=== PATIENT | female | born 1995 | race Caucasian/White ===

== ENCOUNTER 2022-07-15 18:33 | Emergency (ER) | payer OTHER, MEDICAID, SELFPAY ==
--- NOTE | 2022-07-15 18:34 | ED.EAR ---
HPI - Ear Problem General Chief complaint: Ear Stated complaint: Foreign Body in Left Ear Time Seen by Provider: 07/15/22 18:34 Source: patient and RN notes reviewed History of Present Illness HPI Narrative: Patient is a 27-year-old female who presents to urgent care with complaints of possible foreign body to the left ear. Patient states she was cleaning out her ears today 1 cm and believe she may have gotten Q-tips stuck in the ear. Denies any pain. No other acute complaints. No acute distress noted. Patient aware of the plan of care. Some parts of this dictation were generated by voice recognition software and may contain typographical and/or grammatical inaccuracies. Related Data Allergies Allergy/AdvReac Type Severity Reaction Status Date / Time No Known Allergies Allergy Verified 07/15/22 18:42 Review of Systems Review of Systems: CONSTITUTIONAL: Denies fever, chills, or sweats. EYES: Denies visual changes, redness, or discharge. ENT: Denies rhinorrhea, congestion, sore throat. Reports of a possible foreign body to the left ear CARDIOVASCULAR: Denies chest pain, palpitations, or edema. RESPIRATORY: Denies cough or dyspnea. GASTROINTESTINAL: Denies abdominal pain, nausea, vomiting, or diarrhea. GENITOURINARY: Denies dysuria or hematuria. SKIN: Denies rash or itching. MUSCULOSKELETAL: Denies back pain, joint pain, or myalgia. NEUROLOGIC: Denies headache, numbness, or weakness. PSYCHIATRIC: Denies anxiety or depression. All other systems reviewed are negative, except as documented in HPI. PMFSH Comments At the time of my signature, I reviewed and agree with the nursing past medical, surgical, social, and family history. There is no relevant family history pertinent to the patient complaint. Exam Narrative: GENERAL: This is a well-nourished, well-developed patient, in no apparent distress. HEAD: normocephalic, atraumatic. EYES: PERRL. Sclera clear/white. Vision is grossly intact. EARS: External ears normal, auditory canals clear and without drainage, unable to visualize left TM due to foreign body, right TM normal without perforation. Hearing grossly intact. NOSE: External nose normal with no obvious nasal discharge, nares without redness, no rhinorrhea. THROAT: Mucous membranes moist NECK: Neck supple SKIN: warm, intact with no suspicious lesions or rash, good texture and turgor. NEURO: awake, alert, and oriented to person, place and time. There were no obvious focal neurologic abnormalities. EXTREMITIES: No clubbing, cyanosis, or edema. Course Course Level of Care: Express Care Visit Vital Signs Vital signs: Vital Signs Temperature 98.2 F 07/15/22 18:42 Pulse Rate 79 07/15/22 18:42 Respiratory Rate 14 07/15/22 18:42 Blood Pressure 111/72 07/15/22 18:42 Pulse Oximetry 100 07/15/22 18:42 Oxygen Delivery Room Air 07/15/22 18:42 Temperature 98.2 F 07/15/22 18:42 Pulse Rate 79 07/15/22 18:42 Respiratory Rate 14 07/15/22 18:42 Blood Pressure 111/72 07/15/22 18:42 Pulse Oximetry 100 07/15/22 18:42 Oxygen Delivery Room Air 07/15/22 18:42 Reviewed Procedures FB Removal Ear Foreign Body #1: Location: ear canal (L) Foreign Body Suspected: other (Cotton ball/foreign body left ear) TM intact pre-procedure: unable to visualize Foreign Body Removed: yes (Cotton swab) Foreign Body Removal Technique: irrigation Patient Tolerated Procedure: well and no complications Additional Comments: Cotton swab removed with slight warm water irrigation to the left ear canal. No complications. TM visualized and intact. Medical Decision Making MDM Narrative Medical decision making narrative: Advised patient to put anything in the ears such as Q-tips, peroxide, [id number] drops. May use a a warm compress to the ear as needed for discomfort after irrigation. Follow-up with your PCP within 2-5 days or for worsening symptoms or failure to im
[2022-07-15 18:42] VITALS: BP 111/72; PULSE 79; RESP 14; TEMP 36.8; O2SAT 100
== END 2022-07-15 19:17 | disposition home or self-care (01) ==
PROVIDERS: Emergency Provider Nurse Practitioner Family
DX: T16.2XXA Foreign body in left ear, initial encounter (principal); X58.XXXA Exposure to other specified factors, initial encounter
CPT/HCPCS: 99212; G0463